=== PATIENT | male | born 1975 | race Caucasian/White ===

== ENCOUNTER 2018-03-21 09:34 | Observation (INO) ==
[2018-03-21] MEDS ORDERED: ONDANSETRON 4 MG/2 ML VIAL IV PRN (10:55)
[2018-03-21] MEDS ORDERED: DOCUSATE SODIUM 100 MG CAPSULE PO PRN (10:55)
[2018-03-21] MEDS ORDERED: ACETAMINOPHEN 325 MG TABLET PO PRN (10:55)
[2018-03-21] MEDS: FLECAINIDE 50 MG TABLET PO SCH ×2 (14:57→20:54)
[2018-03-21] MEDS: ENOXAPARIN 100 MG/ML SYRINGE SUBCUT SCH (14:57)
[2018-03-21] MEDS: NICOTINE 14 MG/24 HR PATCH TRANSDERM SCH (14:58)
[2018-03-21] MEDS ORDERED: ALUM/MAG/SIMETH/LIDO VISC 1:1 30 ML BOTTLE PO ONE (16:09)
[2018-03-21] MEDS: KETOROLAC 15 MG/1 ML VIAL IV SCH ×2 (16:18→22:38)
[2018-03-21 16:20] LABS: Basophils % 0.4 % (0.0-0.8); Eosinophils # 0.1 10*3/uL (0.0-0.87); Eosinophils % 0.8 % (0.00-10.9); Hemoglobin 12.7 GM/DL (14.0-18.0); Immature Granulocytes % 0.3 %; Immature Granulocytes Absolute 0.03 #; Lymphocytes # 2.6 10*3/uL (1.4-4.0); Lymphocytes % 25.4 % (21.2-54.2); Mean Corpuscular HGB Conc 31.8 GM/DL (32-36); Mean Corpuscular Hemoglobin 28 PG (27-34); Mean Corpuscular Volume 88.3 FL (87-102); Mean Platelet Volume 10.7 FL (9.6-12.0); Monocytes % 9.7 % (1.7-12.7); Neutrophils # 6.5 10*3/uL (1.4-7.4); Neutrophils % 63.4 % (38.7-73.9); Platelet Count 225 T/CUMM (130-400); Red Blood Count 4.53 MC/CUMM (3.8-5.5); Red Cell Distribution Width 16.7 % (9.3-17.3); White Blood Count 10.2 T/CUMM (4-12)
[2018-03-21 16:54] LABS: Bilirubin,Total 0.5 MG/DL (0.2-1.0); Calcium 7.6 MG/DL (8.5-10.1); Osmolality,Calculated 283.3 MOS/KG (273-304); Potassium 3.8 MMOL/L (3.5-5.1); Total Protein 6.1 G/DL (6.4-8.3)
[2018-03-21] MEDS: PANTOPRAZOLE 40 MG TABLET PO SCH (17:10)
[2018-03-21] MEDS: ASPIRIN CHEW 81 MG TABLET PO SCH (17:10)
[2018-03-22] MEDS: ENOXAPARIN 100 MG/ML SYRINGE SUBCUT SCH ×2 (02:59→15:40)
[2018-03-22] MEDS: KETOROLAC 15 MG/1 ML VIAL IV SCH ×4 (03:50→22:10)
[2018-03-22 04:15] LABS: Albumin 2.8 G/DL (3.4-5.0); Bilirubin,Total 0.4 MG/DL (0.2-1.0); Calcium 7.5 MG/DL (8.5-10.1); Osmolality,Calculated 279.5 MOS/KG (273-304); Potassium 3.8 MMOL/L (3.5-5.1)
[2018-03-22 04:16] LABS: Risk Ratio 4.62; VLDL CHOLESTEROL 21.8 MG/DL
[2018-03-22] MEDS ORDERED: ASPIRIN 325 MG TABLET PO ONE (06:40)
[2018-03-22] MEDS ORDERED: diphenhydrAMINE CAP 25 MG CAPSULE PO ONE (06:40)
[2018-03-22] MEDS ORDERED: POTASSIUM CHLORIDE RIDER 10 MEQ in PREMIX 1 EACH IV PRN (06:40)
[2018-03-22] MEDS ORDERED: DIAZEPAM 5 MG TABLET PO ONE (06:40)
[2018-03-22] MEDS ORDERED: MAGNESIUM SULF RIDER 2 GM in PREMIX 1 EACH IV PRN (06:40)
[2018-03-22] MEDS: FLECAINIDE 50 MG TABLET PO SCH ×2 (09:00→21:19)
[2018-03-22] MEDS: PANTOPRAZOLE 40 MG TABLET PO SCH (09:00)
[2018-03-22] MEDS: BUPRENORPHINE HCL PO SCH (09:02)
[2018-03-22] MEDS: NALOXONE HCL PO SCH (09:02)
[2018-03-22] MEDS: ASPIRIN CHEW 81 MG TABLET PO SCH (09:03)
[2018-03-22] MEDS: NICOTINE 14 MG/24 HR PATCH TRANSDERM SCH (09:03)
[2018-03-22] MEDS: Dextroamphetamine/Amphetamine [Adderall 30 Mg Tablet] PO SCH (09:03)
[2018-03-22 09:13] LABS: Apearance,Urine CLEAR (Clear); Bilirubin,Urine Negative (Negative); Blood, Urine Small mg/dL (Negative); Glucose,Urine (UA) Negative (Negative); Ketones,Urine Negative (Negative); Mucus,Urine Many /LPF (Occasional); Nitrite,Urine Negative (Negative); Protein,Urine Negative; RBC,Urine 5 /HPF (0-4); Urine Color Yellow (Yellow); WBC,Urine 1 /HPF (0-6)
[2018-03-22] MEDS: SODIUM CHLORIDE 0.9% 1,000 ML IV SCH ×2 (09:50→17:14)
[2018-03-22] MEDS ORDERED: VERAPAMIL 5 MG/2 ML VIAL ONE (13:12)
[2018-03-22] MEDS ORDERED: NITROGLYCERIN DRIP 50 MG/250 ML BOTTLE IV ONE (13:12)
[2018-03-22] MEDS ORDERED: fentaNYL 100 MCG/2 ML VIAL ONE (13:20)
[2018-03-22] MEDS ORDERED: MIDAZOLAM 2 MG/2 ML VIAL ONE (13:20)
[2018-03-22] MEDS ORDERED: ENOXAPARIN 60 MG/0.6 ML SYRINGE ONE (13:36)
[2018-03-22] MEDS: POLYETHYLENE GLYCOL POWDER 17 GM PACK PO SCH (18:08)
[2018-03-22] MEDS: APIXABAN 5 MG TABLET PO SCH (21:19)
[2018-03-23] MEDS: KETOROLAC 15 MG/1 ML VIAL IV SCH (04:22)
[2018-03-23 05:19] LABS: Basophils % 0.5 % (0.0-0.8); Eosinophils # 0.1 10*3/uL (0.0-0.87); Eosinophils % 2.2 % (0.00-10.9); Hematocrit 38.4 VOL% (42.0-52.0); Immature Granulocytes % 0.2 %; Immature Granulocytes Absolute 0.01 #; Lymphocytes # 2.1 10*3/uL (1.4-4.0); Lymphocytes % 35.3 % (21.2-54.2); Mean Corpuscular HGB Conc 31.3 GM/DL (32-36); Mean Corpuscular Hemoglobin 28 PG (27-34); Mean Corpuscular Volume 89.7 FL (87-102); Mean Platelet Volume 9.8 FL (9.6-12.0); Monocytes # 0.5 10*3/uL (0.11-0.8); Monocytes % 8.3 % (1.7-12.7); Neutrophils # 3.2 10*3/uL (1.4-7.4); Neutrophils % 53.5 % (38.7-73.9); Platelet Count 171 T/CUMM (130-400); Red Blood Count 4.28 MC/CUMM (3.8-5.5); Red Cell Distribution Width 16.5 % (9.3-17.3); White Blood Count 5.9 T/CUMM (4-12)
[2018-03-23 05:35] LABS: Calcium 7.8 MG/DL (8.5-10.1); Osmolality,Calculated 285.1 MOS/KG (273-304); Potassium 3.8 MMOL/L (3.5-5.1)
[2018-03-23 05:36] LABS: Potassium 3.9 MMOL/L (3.5-5.1)
[2018-03-23] MEDS: NICOTINE 14 MG/24 HR PATCH TRANSDERM SCH (09:40)
[2018-03-23] MEDS: APIXABAN 5 MG TABLET PO SCH (09:41)
[2018-03-23] MEDS: POLYETHYLENE GLYCOL POWDER 17 GM PACK PO SCH (09:41)
[2018-03-23] MEDS: PANTOPRAZOLE 40 MG TABLET PO SCH (09:41)
[2018-03-23] MEDS: ASPIRIN CHEW 81 MG TABLET PO SCH (09:41)
[2018-03-23] MEDS: FLECAINIDE 50 MG TABLET PO SCH (09:41)
[2018-03-23] MEDS: BUPRENORPHINE HCL PO SCH (09:41)
[2018-03-23] MEDS: NALOXONE HCL PO SCH (09:41)
[2018-03-23] MEDS: Dextroamphetamine/Amphetamine [Adderall 30 Mg Tablet] PO SCH (09:42)
[2018-03-23 11:30] VITALS: BP 125/66
== END 2018-03-23 11:50 | disposition home or self-care (01) ==
LOC: N.TELES → SUATTDRO 10:24
PROVIDERS: ADMIT Internal Medicine; ATTEND Internal Medicine
PROC: CLCCHCL (ICD-10-PCS; 2018-03-22 13:45)

== ENCOUNTER 2019-01-28 01:20 | Inpatient (IN) ==
[2019-01-28] MEDS ORDERED: FUROSEMIDE 40 MG/4 ML VIAL IV STA (01:42)
[2019-01-28] MEDS ORDERED: METOPROLOL TARTRATE 5 MG/5 ML VIAL IV STA ×2 (01:44→04:32)
[2019-01-28 01:59] LABS: Basophils % 0.3 % (0.0-0.8); Hematocrit 47.6 VOL% (42.0-52.0); Hemoglobin 14.7 GM/DL (14.0-18.0); Immature Granulocytes % 0.4 %; Immature Granulocytes Absolute 0.06 #; Lymphocytes % 13.1 % (21.2-54.2); Mean Corpuscular HGB Conc 30.9 GM/DL (32-36); Mean Corpuscular Volume 89.1 FL (87-102); Mean Platelet Volume 9.3 FL (9.6-12.0); Monocytes % 7.5 % (1.7-12.7); Neutrophils % 78.7 % (38.7-73.9); Platelet Count 307 T/CUMM (130-400); Red Blood Count 5.34 MC/CUMM (3.8-5.5); Red Cell Distribution Width 14.7 % (9.3-17.3); White Blood Count 14.9 T/CUMM (4-12)
[2019-01-28 02:10] LABS: Allen Test Positive
[2019-01-28 02:12] LABS: ABG Base Excess -0.6 MMOL/L (-2.5-2.5); ABG HCO3 23.6 MMOL/L (20-26); ABG Oxygen Saturation 85.5 % (95-100); ABG PH 7.452 (7.35-7.45)
[2019-01-28 02:19] LABS: INR 1.1; PT Patient Result 11.4 SECS (9.6-12.2)
[2019-01-28 02:24] LABS: Albumin 3.5 G/DL (3.4-5.0); Bilirubin,Total 0.5 MG/DL (0.2-1.0); Calcium 9.3 MG/DL (8.5-10.1); Osmolality,Calculated 281.7 MOS/KG (273-304); Total Protein 7.2 G/DL (6.4-8.3)
[2019-01-28] MEDS ORDERED: LEVALBUTEROL 0.63 MG/3 ML NEB RESP TX ONE (02:52)
[2019-01-28] MEDS ORDERED: AMIODARONE INJ 150 MG in DEXTROSE 5% 100 ML IV ONE (03:01)
[2019-01-28] MEDS ORDERED: ENOXAPARIN 30 MG/0.3 ML SYRINGE SUBCUT STA (03:01)
[2019-01-28] MEDS ORDERED: AMIODARONE 450 MG/9 ML VIAL IV ONE (03:16)
[2019-01-28] MEDS ORDERED: DILTIAZEM 25 MG/5 ML VIAL IV ONE (03:31)
[2019-01-28] MEDS ORDERED: DILTIAZEM 100 MG VIAL.ADD IV STA (03:32)
[2019-01-28] MEDS ORDERED: SODIUM CHLORIDE 0.9% 1,000 ML IV STA (03:33)
[2019-01-28] MEDS ORDERED: DILTIAZEM 25 MG/5 ML VIAL IV STA (03:34)
[2019-01-28] MEDS: AMIODARONE INJ 450 MG in DEXTROSE 5% 241 ML IV SCH ×2 (03:50→08:04)
[2019-01-28] MEDS ORDERED: ONDANSETRON ODT 4 MG TABLET PO ONE (04:08)
[2019-01-28 04:18] LABS: Allen Test Positive; Pt O2 Delivery Device Other
[2019-01-28 04:19] LABS: ABG Base Excess -6.8 MMOL/L (-2.5-2.5); ABG PCO2 34.9 MM HG (35-48); ABG PO2 95.1 MM HG (80-95); ABG TCO2 15.7 MMOL/L (23-27)
[2019-01-28] MEDS ORDERED: NICOTINE 21 MG/24 HR PATCH TRANSDERM PRN (04:49)
[2019-01-28] MEDS ORDERED: ALBUTEROL/IPRATROPIUM 3 ML NEB RESP TX PRN (04:49)
[2019-01-28] MEDS ORDERED: FUROSEMIDE 20 MG/2 ML VIAL IV STA (05:03)
[2019-01-28] MEDS ORDERED: methylPREDNISolone SOD SUC 40 MG/1 ML VIAL IV SCH (06:00)
[2019-01-28 06:52] LABS: Apearance,Urine Clear (Clear); Bilirubin,Urine Negative (Negative); Blood, Urine Negative (Negative); Glucose,Urine (UA) Negative (Negative); Ketones,Urine Negative (Negative); Nitrite,Urine Negative (Negative); Protein,Urine >=500 MG/DL; Urine Specific Gravity 1.025 (1.001-1.035)
[2019-01-28 06:53] LABS: Urine Color Yellow (Yellow)
[2019-01-28] MEDS ORDERED: FUROSEMIDE 40 MG/4 ML VIAL IV ONE (07:27)
[2019-01-28] MEDS ORDERED: FUROSEMIDE 100 MG/10 ML VIAL ONE (07:31)
[2019-01-28] MEDS ORDERED: cefTRIAXone 2,000 MG in SYRINGE 1 EACH IV SCH (08:00)
[2019-01-28] MEDS ORDERED: FUROSEMIDE 40 MG/4 ML VIAL IV SCH (08:00)
[2019-01-28] MEDS ORDERED: ETOMIDATE 20 MG/10 ML VIAL IV ONE ×2 (08:20→08:38)
[2019-01-28 08:22] LABS: ABG Base Excess -11.8 MMOL/L (-2.5-2.5); ABG HCO3 15.5 MMOL/L (20-26); ABG Oxygen Saturation 96.2 % (95-100); ABG PH 7.308 (7.35-7.45); ABG PO2 98.5 MM HG (80-95); Pt O2 Delivery Device Other
[2019-01-28] MEDS ORDERED: ROCURONIUM 100 MG/10 ML VIAL IV ONE ×2 (08:26→08:41)
[2019-01-28] MEDS ORDERED: AMIODARONE INJ 450 MG in DEXTROSE 5% 241 ML IV SCH (08:30)
[2019-01-28] MEDS ORDERED: MORPHINE 4 MG/1 ML VIAL IV ONE (08:37)
[2019-01-28] MEDS ORDERED: SODIUM CHLORIDE 0.9% 500 ML IV ONE (08:47)
[2019-01-28] MEDS ORDERED: buPROPion XL 150 MG TABLET PO SCH (09:00)
[2019-01-28] MEDS ORDERED: LEVOFLOXACIN 500 MG TABLET PO SCH (09:00)
[2019-01-28] MEDS ORDERED: ASPIRIN CHEW 81 MG TABLET PO SCH (09:00)
[2019-01-28] MEDS ORDERED: EPINEPHrine 1 MG/10 ML SYRINGE ONE (09:06)
[2019-01-28] MEDS ORDERED: SODIUM BICARBONATE 50 MEQ/50 ML VIAL IV ONE (09:06)
[2019-01-28] MEDS ORDERED: HEPARIN/NACL 0.9% 2 UNITS/ML 500 ML IV ONE (09:19)
[2019-01-28 09:25] LABS: ABG Base Excess -15.3 MMOL/L (-2.5-2.5); ABG Oxygen Saturation 99.8 % (95-100); ABG PO2 431.7 MM HG (80-95)
[2019-01-28 09:26] LABS: ABG PH 7.177 (7.35-7.45)
[2019-01-28] MEDS ORDERED: DOBUTamine 500 MG/250 ML PREMIX IV ONE (09:28)
[2019-01-28] MEDS: DOBUTamine 500 MG/250 ML PREMIX IV PRN ×2 (09:30→19:55)
[2019-01-28] MEDS ORDERED: LACTATED RINGERS 500 ML IV ONE (10:07)
[2019-01-28] MEDS ORDERED: NOREPINEPHRINE 8 MG in SODIUM CHLORIDE 0.9% 242 ML IV PRN (10:09)
[2019-01-28] MEDS: PHENYLEPHRINE DRIP 40 MG/250 ML PREMIX IV PRN ×2 (11:38→11:39)
[2019-01-28] MEDS ORDERED: ENOXAPARIN 100 MG/ML SYRINGE SUBCUT SCH (12:00)
[2019-01-28] MEDS ORDERED: LEVOFLOXACIN INJ 750 MG in PREMIX 1 EACH IV ONE (13:00)
[2019-01-28] MEDS ORDERED: MEROPENEM 500 MG in SODIUM CHLORIDE 0.9% 100 ML IV SCH (13:00)
[2019-01-28 13:35] LABS: ABG HCO3 12.2 MMOL/L (20-26); ABG Oxygen Saturation 98.6 % (95-100); ABG PCO2 48.4 MM HG (35-48); ABG TCO2 12.9 MMOL/L (23-27)
[2019-01-28 13:37] LABS: ABG PH 7.072 (7.35-7.45)
[2019-01-28] MEDS: NOREPINEPHRINE 16 MG in SODIUM CHLORIDE 0.9% 234 ML IV PRN ×2 (14:07→19:53)
[2019-01-28] MEDS: PHENYLEPHRINE INJ 160 MG in SODIUM CHLORIDE 0.9% 234 ML IV PRN ×2 (14:09→19:53)
[2019-01-28 14:17] LABS: PT Patient Result 21.5 SECS (9.6-12.2)
[2019-01-28] MEDS: methylPREDNISolone SOD SUC 40 MG/1 ML VIAL IV SCH ×2 (14:20→23:22)
[2019-01-28 14:27] LABS: Basophils % 0.2 % (0.0-0.8); Immature Granulocytes % 1.5 %; Lymphocytes # 0.9 10*3/uL (1.4-4.0); Lymphocytes % 4.5 % (21.2-54.2); Mean Corpuscular HGB Conc 29.2 GM/DL (32-36); Mean Platelet Volume 10.1 FL (9.6-12.0); Monocytes % 4.7 % (1.7-12.7); NRBC # 0.02 10*3/uL; Neutrophils % 89.1 % (38.7-73.9); Platelet Count 247 T/CUMM (130-400); Red Blood Count 4.99 MC/CUMM (3.8-5.5); Red Cell Distribution Width 14.7 % (9.3-17.3); White Blood Count 20.1 T/CUMM (4-12)
[2019-01-28 14:29] LABS: Hematocrit 47.9 VOL% (42.0-52.0)
[2019-01-28] MEDS ORDERED: EPINEPHrine 1 MG/ML VIAL ONE (14:35)
[2019-01-28 14:53] LABS: Lymphocytes 6 % (20-55); Segmented Neutrophils 89 % (50-85); Total Cells Counted 100
[2019-01-28 14:54] LABS: Microcytosis Slight; Platelet Estimate Normal
[2019-01-28 15:01] LABS: Alanine Aminotransferase 8129 U/L (16-61); Albumin 2.5 G/DL (3.4-5.0); Alkaline Phosphatase 59 U/L (45-117); Aspartate Amino Transferase 7274 U/L (0-37); Blood Urea Nitrogen 40 MG/DL (7-18); Calcium 6.9 MG/DL (8.5-10.1); Estimated Glom Filtration Rate 23 ML/MIN; Glucose 86 MG/DL (74-106); Osmolality,Calculated 287.4 MOS/KG (273-304); Total Protein 5.5 G/DL (6.4-8.3)
[2019-01-28] MEDS: SODIUM BICARB INJ 100 MEQ in SODIUM CHLORIDE 0.45% 1,000 ML IV SCH (15:14)
[2019-01-28 15:24] LABS: ABG Base Excess -16.8 MMOL/L (-2.5-2.5); ABG HCO3 12.3 MMOL/L (20-26); ABG PCO2 43.3 MM HG (35-48); ABG TCO2 12.2 MMOL/L (23-27)
[2019-01-28 15:29] LABS: ABG PH 7.098 (7.35-7.45)
[2019-01-28] MEDS: fentaNYL INJ 1,250 MCG in SODIUM CHLORIDE 0.9% 225 ML IV PRN ×3 (15:36→22:30)
[2019-01-28] MEDS: FUROSEMIDE 40 MG/4 ML VIAL IV SCH (15:42)
[2019-01-28 18:43] LABS: Barbiturates Screen,Urine Negative (Negative); Benzodiazepines Screen,Urine Negative (Negative); Cannabinoid Screen,Urine Negative (Negative); Opiate Screen,Urine Positive (Negative); Phencyclidine Screen,Urine Negative (Negative)
[2019-01-28] MEDS ORDERED: LORazepam 2 MG/1 ML VIAL IV PRN (18:50)
[2019-01-28] MEDS ORDERED: LORazepam 2 MG/1 ML VIAL ONE ×2 (18:53→20:25)
[2019-01-28 19:25] LABS: ABG Base Excess -14.5 MMOL/L (-2.5-2.5); ABG HCO3 13.6 MMOL/L (20-26); ABG Oxygen Saturation 99.2 % (95-100); ABG TCO2 13.8 MMOL/L (23-27)
[2019-01-28 19:28] LABS: ABG PH 7.126 (7.35-7.45)
[2019-01-28] MEDS ORDERED: ZIPRASIDONE 20 MG/1 ML VIAL IM ONE (20:18)
[2019-01-28] MEDS: LORazepam 2 MG/1 ML VIAL IV PRN (20:30)
[2019-01-29] MEDS: LORazepam 2 MG/1 ML VIAL IV PRN ×2 (00:33→09:02)
[2019-01-29] MEDS: fentaNYL INJ 2,500 MCG in SODIUM CHLORIDE 0.9% 450 ML IV PRN ×2 (01:37→08:27)
[2019-01-29] MEDS: SODIUM BICARB INJ 100 MEQ in SODIUM CHLORIDE 0.45% 1,000 ML IV SCH ×2 (01:38→12:45)
[2019-01-29 04:34] LABS: Basophils % 0.1 % (0.0-0.8); Hematocrit 38.6 VOL% (42.0-52.0); Hemoglobin 11.8 GM/DL (14.0-18.0); Immature Granulocytes % 0.7 %; Lymphocytes # 0.6 10*3/uL (1.4-4.0); Lymphocytes % 4.3 % (21.2-54.2); Mean Corpuscular HGB Conc 30.6 GM/DL (32-36); Mean Corpuscular Volume 90.4 FL (87-102); Mean Platelet Volume 10.6 FL (9.6-12.0); Monocytes % 3.2 % (1.7-12.7); Neutrophils % 91.7 % (38.7-73.9); Platelet Count 112 T/CUMM (130-400); Red Blood Count 4.27 MC/CUMM (3.8-5.5); Red Cell Distribution Width 14.3 % (9.3-17.3); White Blood Count 13.7 T/CUMM (4-12)
[2019-01-29 04:37] LABS: ABG HCO3 19.4 MMOL/L (20-26); ABG Oxygen Saturation 97.3 % (95-100); ABG PCO2 38.2 MM HG (35-48); ABG PH 7.324 (7.35-7.45); ABG PO2 108.5 MM HG (80-95); ABG TCO2 20.6 MMOL/L (23-27)
[2019-01-29] MEDS: PHENYLEPHRINE INJ 160 MG in SODIUM CHLORIDE 0.9% 234 ML IV PRN (04:45)
[2019-01-29 04:54] LABS: Calcium 6.2 MG/DL (8.5-10.1); Osmolality,Calculated 296.4 MOS/KG (273-304)
[2019-01-29] MEDS ORDERED: MAGNESIUM SULF RIDER 4 GM in PREMIX 1 EACH IV PRN (05:12)
[2019-01-29] MEDS ORDERED: MAGNESIUM SULF RIDER 2 GM in PREMIX 1 EACH IV PRN (05:12)
[2019-01-29 05:25] LABS: Band Neutrophils 4 % (0-10); Lymphocytes 2 % (20-55); Segmented Neutrophils 91 % (50-85); Total Cells Counted 100
[2019-01-29 05:26] LABS: Hypochromasia Slight; Platelet Estimate Decreased
[2019-01-29] MEDS: methylPREDNISolone SOD SUC 40 MG/1 ML VIAL IV SCH ×3 (05:47→16:23)
[2019-01-29] MEDS: ONDANSETRON 4 MG/2 ML VIAL IV PRN (06:43)
[2019-01-29 07:19] LABS: Albumin 2.4 G/DL (3.4-5.0); Bilirubin,Total 1.4 MG/DL (0.2-1.0); Osmolality,Calculated 298.3 MOS/KG (273-304); Total Protein 4.9 G/DL (6.4-8.3)
[2019-01-29] MEDS ORDERED: GLUCAGON 1 MG VIAL IM PRN (08:05)
[2019-01-29] MEDS ORDERED: DEXTROSE 50% 25 GM/50 ML VIAL IV PRN (08:05)
[2019-01-29] MEDS: FUROSEMIDE 40 MG/4 ML VIAL IV SCH ×2 (08:14→16:18)
[2019-01-29] MEDS ORDERED: DEXTROSE 10% 250 ML IV PRN (08:42)
[2019-01-29] MEDS ORDERED: LORazepam 2 MG/1 ML VIAL ONE (08:55)
[2019-01-29 09:17] LABS: Hepatitis B Core IgM Quant 0.19 Index; Hepatitis B Surface Ag Quant < 0.10 Index; Hepatitis B Surface Ag Result Negative (Negative); Hepatitis C Virus Ab Quant < 0.02 Index; Hepatitis C Virus Ab Result Negative (Negative)
[2019-01-29] MEDS: DEXMEDETOMIDINE 200 MCG in SODIUM CHLORIDE 0.9% 48 ML IV PRN (09:20)
[2019-01-29] MEDS: DIAZEPAM 5 MG TABLET PER TUBE SCH ×3 (10:07→20:01)
[2019-01-29] MEDS ORDERED: ENOXAPARIN 100 MG/ML SYRINGE SUBCUT SCH (13:00)
[2019-01-29] MEDS: ENOXAPARIN 30 MG/0.3 ML SYRINGE SUBCUT SCH (14:06)
[2019-01-29] MEDS: MEROPENEM 500 MG in SODIUM CHLORIDE 0.9% 100 ML IV SCH (14:07)
[2019-01-30] MEDS: methylPREDNISolone SOD SUC 40 MG/1 ML VIAL IV SCH ×3 (01:15→15:50)
[2019-01-30] MEDS: MORPHINE 4 MG/1 ML VIAL IV PRN (01:15)
[2019-01-30 03:51] LABS: ABG Oxygen Saturation 92.6 % (95-100); ABG PCO2 29.9 MM HG (35-48); ABG PH 7.372 (7.35-7.45); ABG PO2 75.2 MM HG (80-95); ABG TCO2 17.9 MMOL/L (23-27)
[2019-01-30 03:56] LABS: Basophils % 0.2 % (0.0-0.8); Hemoglobin 12.1 GM/DL (14.0-18.0); Immature Granulocytes % 0.8 %; Lymphocytes # 0.6 10*3/uL (1.4-4.0); Lymphocytes % 4.8 % (21.2-54.2); Mean Platelet Volume 12.2 FL (9.6-12.0); Monocytes % 4.2 % (1.7-12.7); NRBC # 0.06 10*3/uL; Red Blood Count 4.43 MC/CUMM (3.8-5.5); Red Cell Distribution Width 14.2 % (9.3-17.3); White Blood Count 12.8 T/CUMM (4-12)
[2019-01-30 04:01] LABS: Platelet Count 80 T/CUMM (130-400)
[2019-01-30 05:17] LABS: Bilirubin,Total 1.3 MG/DL (0.2-1.0); Calcium 6.2 MG/DL (8.5-10.1); Total Protein 5.6 G/DL (6.4-8.3)
[2019-01-30 05:18] LABS: Albumin 2.8 G/DL (3.4-5.0); Osmolality,Calculated 292.4 MOS/KG (273-304)
[2019-01-30 05:41] LABS: Band Neutrophils 1 % (0-10); Lymphocytes 7 % (20-55); Segmented Neutrophils 89 % (50-85)
[2019-01-30 05:42] LABS: Platelet Estimate Decreased
[2019-01-30 05:43] LABS: Hypochromasia Slight; Ovalocytes 2+; Total Cells Counted 100
[2019-01-30] MEDS ORDERED: SODIUM BICARBONATE 50 MEQ/50 ML VIAL IV ONE ×3 (08:23→18:00)
[2019-01-30] MEDS ORDERED: hydrALAZINE 20 MG/1 ML VIAL IV PRN (08:28)
[2019-01-30] MEDS: FUROSEMIDE 40 MG/4 ML VIAL IV SCH (08:37)
[2019-01-30] MEDS: SODIUM BICARB INJ 100 MEQ in SODIUM CHLORIDE 0.45% 1,000 ML IV SCH (08:44)
[2019-01-30] MEDS ORDERED: ZUBSOLV PO SCH (09:00)
[2019-01-30] MEDS: ISOSORBIDE MONONITRATE 30 MG TABLET PO SCH (09:12)
[2019-01-30] MEDS: carvediloL 3.125 MG TABLET PO SCH ×2 (09:12→20:49)
[2019-01-30] MEDS: DIAZEPAM 5 MG TABLET PER TUBE SCH ×3 (09:12→20:49)
[2019-01-30] MEDS: hydrALAZINE 25 MG TABLET PO SCH ×2 (09:12→20:49)
[2019-01-30] MEDS: ALBUTEROL/IPRATROPIUM 3 ML NEB RESP TX SCH ×3 (09:20→19:24)
[2019-01-30] MEDS: ZUBSOLV SL SCH (09:34)
[2019-01-30] MEDS: DEXMEDETOMIDINE 200 MCG in SODIUM CHLORIDE 0.9% 48 ML IV PRN ×2 (10:55→23:28)
[2019-01-30] MEDS ORDERED: LEVOFLOXACIN INJ 500 MG in PREMIX 1 EACH IV SCH (13:30)
[2019-01-30] MEDS: ENOXAPARIN 30 MG/0.3 ML SYRINGE SUBCUT SCH (13:56)
[2019-01-30] MEDS: MEROPENEM 500 MG in SODIUM CHLORIDE 0.9% 100 ML IV SCH (13:57)
[2019-01-30] MEDS: ONDANSETRON 4 MG/2 ML VIAL IV PRN (14:20)
[2019-01-31] MEDS: ALBUTEROL/IPRATROPIUM 3 ML NEB RESP TX SCH ×4 (01:45→19:10)
[2019-01-31] MEDS: methylPREDNISolone SOD SUC 40 MG/1 ML VIAL IV SCH ×4 (01:46→23:55)
[2019-01-31 04:08] LABS: ABG Base Excess -5.2 MMOL/L (-2.5-2.5); ABG HCO3 20.1 MMOL/L (20-26); ABG Oxygen Saturation 96.7 % (95-100); ABG PCO2 31.2 MM HG (35-48); ABG PH 7.386 (7.35-7.45); ABG PO2 96.4 MM HG (80-95); ABG TCO2 16.4 MMOL/L (23-27); Allen Test Positive; Pt O2 Delivery Device Simple Mask
[2019-01-31 04:34] LABS: Basophils % 0.1 % (0.0-0.8); Hematocrit 39.1 VOL% (42.0-52.0); Hemoglobin 12.6 GM/DL (14.0-18.0); Immature Granulocytes Absolute 0.13 #; Lymphocytes # 0.8 10*3/uL (1.4-4.0); Lymphocytes % 6.3 % (21.2-54.2); Mean Corpuscular HGB Conc 32.2 GM/DL (32-36); Mean Corpuscular Volume 84.3 FL (87-102); Mean Platelet Volume 10.6 FL (9.6-12.0); Monocytes % 5.5 % (1.7-12.7); NRBC # 0.06 10*3/uL; Neutrophils % 87.1 % (38.7-73.9); Platelet Count 81 T/CUMM (130-400); Red Blood Count 4.64 MC/CUMM (3.8-5.5); Red Cell Distribution Width 13.9 % (9.3-17.3); White Blood Count 12.5 T/CUMM (4-12)
[2019-01-31 04:59] LABS: Hypochromasia Slight; Platelet Estimate Decreased; Polychromasia Few; Smudge Cells Few
[2019-01-31 05:43] LABS: Albumin 2.5 G/DL (3.4-5.0); Bilirubin,Total 1.6 MG/DL (0.2-1.0); Osmolality,Calculated 293.1 MOS/KG (273-304); Total Protein 5.2 G/DL (6.4-8.3)
[2019-01-31 06:00] LABS: Calcium 5.8 MG/DL (8.5-10.1)
[2019-01-31] MEDS ORDERED: SODIUM BICARBONATE 50 MEQ/50 ML VIAL IV ONE (08:08)
[2019-01-31] MEDS: ISOSORBIDE MONONITRATE 30 MG TABLET PO SCH (09:40)
[2019-01-31] MEDS: carvediloL 3.125 MG TABLET PO SCH ×2 (09:41→20:25)
[2019-01-31] MEDS: hydrALAZINE 25 MG TABLET PO SCH ×2 (09:41→20:24)
[2019-01-31] MEDS: DIAZEPAM 5 MG TABLET PER TUBE SCH ×3 (09:41→20:24)
[2019-01-31] MEDS: ZUBSOLV SL SCH (09:50)
[2019-01-31] MEDS: SODIUM BICARB INJ 100 MEQ in SODIUM CHLORIDE 0.45% 1,000 ML IV SCH ×2 (09:52→13:13)
[2019-01-31] MEDS ORDERED: BUPIVACAINE 0.25% /EPI 10 ML VIAL ONE (10:32)
[2019-01-31] MEDS ORDERED: HEPARIN 5,000 UNIT/1 ML VIAL ONE (10:32)
[2019-01-31] MEDS ORDERED: LIDOCAINE 1% 20 ML VIAL ONE (10:32)
[2019-01-31] MEDS ORDERED: TISSUE ADHESIVE 1 EACH APPLICATOR TOP ONE (12:00)
[2019-01-31] MEDS ORDERED: ETOMIDATE 40 MG/20 ML VIAL IV ONE (12:43)
[2019-01-31] MEDS ORDERED: MIDAZOLAM 2 MG/2 ML VIAL ONE (12:43)
[2019-01-31] MEDS: ENOXAPARIN 30 MG/0.3 ML SYRINGE SUBCUT SCH (13:25)
[2019-01-31] MEDS: MEROPENEM 500 MG in SODIUM CHLORIDE 0.9% 100 ML IV SCH (13:29)
[2019-01-31] MEDS: DEXMEDETOMIDINE 200 MCG in SODIUM CHLORIDE 0.9% 48 ML IV PRN (14:04)
[2019-01-31] MEDS ORDERED: HEPARIN 10,000 UNIT/10 ML VIAL IV PRN (16:40)
[2019-02-01] MEDS: ALBUTEROL/IPRATROPIUM 3 ML NEB RESP TX SCH ×4 (00:28→20:09)
[2019-02-01] MEDS: MORPHINE 4 MG/1 ML VIAL IV PRN (01:34)
[2019-02-01 03:40] LABS: Basophils % 0.2 % (0.0-0.8); Immature Granulocytes Absolute 0.16 #; Lymphocytes # 0.5 10*3/uL (1.4-4.0); Mean Corpuscular HGB Conc 32.5 GM/DL (32-36); Mean Platelet Volume 11.2 FL (9.6-12.0); Monocytes % 5.4 % (1.7-12.7); NRBC # 0.07 10*3/uL; Neutrophils % 90.4 % (38.7-73.9); Red Blood Count 4.76 MC/CUMM (3.8-5.5); Red Cell Distribution Width 13.9 % (9.3-17.3); White Blood Count 15.5 T/CUMM (4-12)
[2019-02-01 04:21] LABS: ABG Oxygen Saturation 92.6 % (95-100); ABG PO2 70.8 MM HG (80-95); ABG TCO2 17.1 MMOL/L (23-27); Allen Test Positive
[2019-02-01 04:39] LABS: Platelet Count 121 T/CUMM (130-400)
[2019-02-01 05:04] LABS: Albumin 2.5 G/DL (3.4-5.0); Bilirubin,Total 1.5 MG/DL (0.2-1.0); Calcium 6.2 MG/DL (8.5-10.1); Osmolality,Calculated 296.7 MOS/KG (273-304); Total Protein 5.1 G/DL (6.4-8.3)
[2019-02-01 05:26] LABS: Lymphocytes 1 % (20-55); Platelet Estimate Decreased; Polychromasia Few; Segmented Neutrophils 94 % (50-85); Total Cells Counted 100
[2019-02-01] MEDS ORDERED: chlorproMAZINE 25 MG TABLET PO ONE (06:45)
[2019-02-01] MEDS: methylPREDNISolone SOD SUC 40 MG/1 ML VIAL IV SCH ×2 (07:28→16:09)
[2019-02-01] MEDS: DEXMEDETOMIDINE 200 MCG in SODIUM CHLORIDE 0.9% 48 ML IV PRN (07:32)
[2019-02-01] MEDS: hydrALAZINE 25 MG TABLET PO SCH ×2 (09:00→21:26)
[2019-02-01] MEDS: carvediloL 6.25 MG TABLET PO SCH ×2 (09:00→21:26)
[2019-02-01] MEDS: ZUBSOLV SL SCH (09:42)
[2019-02-01] MEDS: DIAZEPAM 5 MG TABLET PER TUBE SCH (09:42)
[2019-02-01] MEDS: ENOXAPARIN 30 MG/0.3 ML SYRINGE SUBCUT SCH (13:59)
[2019-02-01] MEDS: ISOSORBIDE MONONITRATE 30 MG TABLET PO SCH (14:00)
[2019-02-01] MEDS: MEROPENEM 500 MG in SODIUM CHLORIDE 0.9% 100 ML IV SCH (14:41)
[2019-02-01] MEDS: CLORAZEPATE 7.5 MG TABLET PO SCH ×2 (15:50→21:25)
[2019-02-01] MEDS: PHENOL 1.4% THROAT SPRAY 177 ML BOTTLE PO PRN (21:28)
[2019-02-02] MEDS: methylPREDNISolone SOD SUC 40 MG/1 ML VIAL IV SCH ×4 (00:33→23:41)
[2019-02-02] MEDS: ALBUTEROL/IPRATROPIUM 3 ML NEB RESP TX SCH ×4 (01:09→18:55)
[2019-02-02 04:27] LABS: ABG Base Excess -2.8 MMOL/L (-2.5-2.5); ABG HCO3 21.9 MMOL/L (20-26); ABG Oxygen Saturation 87.4 % (95-100); ABG PCO2 34.6 MM HG (35-48); ABG PH 7.398 (7.35-7.45); ABG PO2 59.4 MM HG (80-95); ABG TCO2 18.6 MMOL/L (23-27); Allen Test Positive
[2019-02-02 04:41] LABS: Albumin 2.5 G/DL (3.4-5.0); Bilirubin,Total 1.7 MG/DL (0.2-1.0); Calcium 6.9 MG/DL (8.5-10.1); Osmolality,Calculated 299.4 MOS/KG (273-304); Total Protein 5.2 G/DL (6.4-8.3)
[2019-02-02] MEDS: hydrALAZINE 25 MG TABLET PO SCH ×2 (09:53→20:24)
[2019-02-02] MEDS: ISOSORBIDE MONONITRATE 30 MG TABLET PO SCH (09:53)
[2019-02-02] MEDS: carvediloL 12.5 MG TABLET PO SCH ×2 (09:54→20:24)
[2019-02-02] MEDS: CLORAZEPATE 7.5 MG TABLET PO SCH ×3 (10:01→20:24)
[2019-02-02] MEDS: ZUBSOLV SL SCH (10:01)
[2019-02-02] MEDS: ENOXAPARIN 30 MG/0.3 ML SYRINGE SUBCUT SCH (13:00)
[2019-02-02] MEDS: MEROPENEM 500 MG in SODIUM CHLORIDE 0.9% 100 ML IV SCH (13:30)
[2019-02-02] MEDS: MYLANTA/LIDO VISC/DIPH 300 ML BOTTLE SWISH/SWAL SCH ×3 (14:04→20:25)
[2019-02-02] MEDS: PHENOL 1.4% THROAT SPRAY 177 ML BOTTLE PO PRN (22:22)
[2019-02-02] MEDS: chlorproMAZINE 25 MG TABLET PO PRN (22:26)
[2019-02-02] MEDS: MORPHINE 4 MG/1 ML VIAL IV PRN (22:26)
[2019-02-03] MEDS: ALBUTEROL/IPRATROPIUM 3 ML NEB RESP TX SCH ×4 (01:42→19:39)
[2019-02-03] MEDS: MORPHINE 4 MG/1 ML VIAL IV PRN ×2 (02:55→22:48)
[2019-02-03 03:23] LABS: ABG Base Excess -1.6 MMOL/L (-2.5-2.5); ABG Oxygen Saturation 92.3 % (95-100); ABG PCO2 40.3 MM HG (35-48); ABG PH 7.374 (7.35-7.45); ABG PO2 73.1 MM HG (80-95); ABG TCO2 20.2 MMOL/L (23-27); Allen Test Positive
[2019-02-03 03:44] LABS: Basophils # 0.1 10*3/uL (0.0-0.2); Basophils % 0.3 % (0.0-0.8); Hematocrit 44.2 VOL% (42.0-52.0); Hemoglobin 14.6 GM/DL (14.0-18.0); Immature Granulocytes % 1.4 %; Immature Granulocytes Absolute 0.33 #; Lymphocytes # 0.5 10*3/uL (1.4-4.0); Mean Corpuscular Volume 83.9 FL (87-102); Mean Platelet Volume 11.1 FL (9.6-12.0); Monocytes % 10.3 % (1.7-12.7); NRBC # 0.29 10*3/uL; Platelet Count 113 T/CUMM (130-400); Red Blood Count 5.27 MC/CUMM (3.8-5.5); Red Cell Distribution Width 14.3 % (9.3-17.3); White Blood Count 23.9 T/CUMM (4-12)
[2019-02-03] MEDS ORDERED: VECURONIUM 10 MG VIAL IV ONE (03:47)
[2019-02-03] MEDS ORDERED: ETOMIDATE 20 MG/10 ML VIAL IV ONE ×2 (03:47→03:50)
[2019-02-03 04:04] LABS: Calcium 7.2 MG/DL (8.5-10.1); Osmolality,Calculated 300.2 MOS/KG (273-304)
[2019-02-03 04:31] LABS: Lymphocytes 3 % (20-55); Nucleated Red Blood Cells 2 (0-5); Platelet Estimate Decreased; Polychromasia Few; Segmented Neutrophils 90 % (50-85); Total Cells Counted 100
[2019-02-03 05:11] LABS: ABG Base Excess -1.6 MMOL/L (-2.5-2.5); ABG HCO3 23.1 MMOL/L (20-26); ABG Oxygen Saturation 99.7 % (95-100); ABG PCO2 39.9 MM HG (35-48); ABG PH 7.377 (7.35-7.45); ABG TCO2 20.3 MMOL/L (23-27); Allen Test Positive; Pt O2 Delivery Device Ventilator
[2019-02-03] MEDS: methylPREDNISolone SOD SUC 40 MG/1 ML VIAL IV SCH ×3 (10:27→22:44)
[2019-02-03] MEDS: carvediloL 12.5 MG TABLET PO SCH ×2 (11:19→20:44)
[2019-02-03] MEDS: CLORAZEPATE 7.5 MG TABLET PO SCH (11:19)
[2019-02-03] MEDS: ISOSORBIDE MONONITRATE 30 MG TABLET PO SCH (11:20)
[2019-02-03] MEDS: hydrALAZINE 25 MG TABLET PO SCH ×2 (11:20→20:44)
[2019-02-03] MEDS: MYLANTA/LIDO VISC/DIPH 300 ML BOTTLE SWISH/SWAL SCH (11:20)
[2019-02-03] MEDS: HEPARIN 5,000 UNIT/1 ML VIAL SUBCUT SCH ×2 (11:28→22:44)
[2019-02-03] MEDS: ZUBSOLV SL SCH (11:36)
[2019-02-03] MEDS ORDERED: DEXTROSE 50% 25 GM/50 ML VIAL IV PRN (12:26)
[2019-02-03] MEDS: MEROPENEM 500 MG in SODIUM CHLORIDE 0.9% 100 ML IV SCH (13:11)
[2019-02-03] MEDS: buPROPion 100 MG TABLET PER TUBE SCH ×2 (16:08→20:44)
[2019-02-03] MEDS: ISOSORBIDE DINITRATE 10 MG TABLET PO SCH ×2 (16:23→20:43)
[2019-02-03] MEDS: INSULIN REGULAR 100 UNIT/ML SUBCUT SCH ×2 (18:08→23:41)
[2019-02-04] MEDS: ALBUTEROL/IPRATROPIUM 3 ML NEB RESP TX SCH ×4 (00:52→20:26)
[2019-02-04] MEDS: MORPHINE 4 MG/1 ML VIAL IV PRN (02:54)
[2019-02-04 03:19] LABS: ABG Base Excess -1.3 MMOL/L (-2.5-2.5); ABG Oxygen Saturation 99.4 % (95-100); ABG PCO2 32.5 MM HG (35-48); ABG PH 7.448 (7.35-7.45); ABG PO2 331.4 MM HG (80-95); Allen Test Positive; Pt O2 Delivery Device Ventilator
[2019-02-04 05:47] LABS: Basophils % 0.2 % (0.0-0.8); Hematocrit 37.8 VOL% (42.0-52.0); Hemoglobin 12.6 GM/DL (14.0-18.0); Immature Granulocytes % 1.2 %; Lymphocytes # 0.3 10*3/uL (1.4-4.0); Lymphocytes % 1.9 % (21.2-54.2); Mean Corpuscular HGB Conc 33.3 GM/DL (32-36); Mean Corpuscular Volume 82.4 FL (87-102); Mean Platelet Volume 12.9 FL (9.6-12.0); Neutrophils % 88.7 % (38.7-73.9); Platelet Count 95 T/CUMM (130-400); Red Blood Count 4.59 MC/CUMM (3.8-5.5); Red Cell Distribution Width 14.6 % (9.3-17.3); White Blood Count 16.6 T/CUMM (4-12)
[2019-02-04] MEDS: INSULIN REGULAR 100 UNIT/ML SUBCUT SCH ×3 (05:54→18:50)
[2019-02-04 06:11] LABS: Lymphocytes 1 % (20-55); Nucleated Red Blood Cells 1 (0-5); Segmented Neutrophils 94 % (50-85); Total Cells Counted 100
[2019-02-04 06:12] LABS: Hypochromasia 1+; Microcytosis Slight; Ovalocytes Slight; Polychromasia Slight
[2019-02-04 06:13] LABS: Platelet Estimate Decreased
[2019-02-04 06:18] LABS: Prealbumin 22.9 MG/DL (20-40)
[2019-02-04 06:30] LABS: Calcium 7.5 MG/DL (8.5-10.1); Osmolality,Calculated 298.2 MOS/KG (273-304)
[2019-02-04] MEDS: hydrALAZINE 25 MG TABLET PO SCH ×2 (09:32→21:02)
[2019-02-04] MEDS: carvediloL 12.5 MG TABLET PO SCH ×2 (09:33→21:02)
[2019-02-04] MEDS: buPROPion 100 MG TABLET PER TUBE SCH ×3 (09:33→21:02)
[2019-02-04 10:45] LABS: Amorphous Crystals,Urine Few /HPF (Few); Apearance,Urine CLOUDY (Clear); Bacteria,Urine Occasional /HPF (Few); Bilirubin,Urine Negative (Negative); Blood, Urine Moderate mg/dL (Negative); Glucose,Urine (UA) Negative (Negative); Hyaline Casts,Urine 1 /LPF (0-3); Ketones,Urine Negative (Negative); Mucus,Urine Occasional /LPF (Occasional); Nitrite,Urine Negative (Negative); Protein,Urine Negative; RBC,Urine 26 /HPF (0-4); Squamous Epithelial Cell,Urine Occasional /HPF (0-10); Urine Color Yellow (Yellow); Urine Specific Gravity 1.011 (1.001-1.035); Urine Urobilinogen < 2.0 EU/DL (0.2-1.0); WBC,Urine 18 /HPF (0-6)
[2019-02-04] MEDS: ZUBSOLV SL SCH (10:46)
[2019-02-04] MEDS: ISOSORBIDE DINITRATE 10 MG TABLET PO SCH ×3 (10:47→21:02)
[2019-02-04] MEDS: methylPREDNISolone SOD SUC 40 MG/1 ML VIAL IV SCH ×2 (11:02→22:47)
[2019-02-04] MEDS: HEPARIN 5,000 UNIT/1 ML VIAL SUBCUT SCH ×2 (11:02→22:47)
[2019-02-04] MEDS: MEROPENEM 500 MG in SODIUM CHLORIDE 0.9% 100 ML IV SCH (13:33)
[2019-02-04] MEDS: PHENOL 1.4% THROAT SPRAY 177 ML BOTTLE PO PRN (17:03)
[2019-02-05] MEDS: ALBUTEROL/IPRATROPIUM 3 ML NEB RESP TX SCH ×4 (00:30→19:56)
[2019-02-05 04:03] LABS: ABG Base Excess 0.7 MMOL/L (-2.5-2.5); ABG HCO3 23.6 MMOL/L (20-26); ABG PCO2 32.5 MM HG (35-48); ABG PH 7.479 (7.35-7.45); ABG PO2 193.9 MM HG (80-95); ABG TCO2 24.6 MMOL/L (23-27); Pt O2 Delivery Device Ventilator
[2019-02-05 04:18] LABS: Basophils % 0.2 % (0.0-0.8); Hematocrit 35.7 VOL% (42.0-52.0); Hemoglobin 11.9 GM/DL (14.0-18.0); Immature Granulocytes % 1.4 %; Immature Granulocytes Absolute 0.24 #; Lymphocytes # 0.4 10*3/uL (1.4-4.0); Lymphocytes % 2.2 % (21.2-54.2); Mean Corpuscular HGB Conc 33.3 GM/DL (32-36); Mean Corpuscular Volume 82.8 FL (87-102); Mean Platelet Volume 11.8 FL (9.6-12.0); Monocytes % 6.4 % (1.7-12.7); NRBC # 0.02 10*3/uL; Neutrophils % 89.8 % (38.7-73.9); Platelet Count 80 T/CUMM (130-400); Red Blood Count 4.31 MC/CUMM (3.8-5.5); Red Cell Distribution Width 14.6 % (9.3-17.3); White Blood Count 17.1 T/CUMM (4-12)
[2019-02-05 04:34] LABS: Calcium 7.7 MG/DL (8.5-10.1); Osmolality,Calculated 304.8 MOS/KG (273-304)
[2019-02-05] MEDS: PHENOL 1.4% THROAT SPRAY 177 ML BOTTLE PO PRN (04:47)
[2019-02-05] MEDS: ALUMINUM/MAGNES/SIMETH MAX STR 30 ML UDCUP PO PRN ×2 (04:56→15:48)
[2019-02-05] MEDS: INSULIN REGULAR 100 UNIT/ML SUBCUT SCH ×4 (05:21→18:03)
[2019-02-05 06:14] LABS: Band Neutrophils 1 % (0-10); Lymphocytes 3 % (20-55); Segmented Neutrophils 94 % (50-85); Total Cells Counted 100
[2019-02-05 06:15] LABS: Ovalocytes Slight; Polychromasia Slight
[2019-02-05 06:16] LABS: Microcytosis 1+; Platelet Estimate Decreased
[2019-02-05] MEDS: buPROPion 100 MG TABLET PER TUBE SCH ×3 (09:02→20:44)
[2019-02-05] MEDS: carvediloL 12.5 MG TABLET PO SCH ×2 (09:02→20:44)
[2019-02-05] MEDS: hydrALAZINE 25 MG TABLET PO SCH ×3 (09:03→21:59)
[2019-02-05] MEDS: ZUBSOLV SL SCH (09:03)
[2019-02-05] MEDS: ISOSORBIDE DINITRATE 10 MG TABLET PO SCH ×3 (10:39→20:44)
[2019-02-05] MEDS: HEPARIN 5,000 UNIT/1 ML VIAL SUBCUT SCH ×2 (10:49→22:00)
[2019-02-05] MEDS: methylPREDNISolone SOD SUC 40 MG/1 ML VIAL IV SCH (10:50)
[2019-02-05] MEDS: MEROPENEM 500 MG in SODIUM CHLORIDE 0.9% 100 ML IV SCH (13:35)
[2019-02-06] MEDS: INSULIN REGULAR 100 UNIT/ML SUBCUT SCH ×4 (01:02→17:47)
[2019-02-06] MEDS: ALBUTEROL/IPRATROPIUM 3 ML NEB RESP TX SCH ×4 (01:19→19:08)
[2019-02-06 05:03] LABS: ABG Base Excess -0.7 MMOL/L (-2.5-2.5); ABG HCO3 23.8 MMOL/L (20-26); ABG Oxygen Saturation 99.4 % (95-100); ABG PCO2 37.7 MM HG (35-48); ABG PH 7.405 (7.35-7.45); ABG TCO2 20.5 MMOL/L (23-27); Allen Test Positive; Pt O2 Delivery Device Ventilator
[2019-02-06 06:30] LABS: Basophils % 0.2 % (0.0-0.8); Hematocrit 41.8 VOL% (42.0-52.0); Hemoglobin 13.6 GM/DL (14.0-18.0); Lymphocytes # 0.5 10*3/uL (1.4-4.0); Lymphocytes % 2.4 % (21.2-54.2); Mean Corpuscular HGB Conc 32.5 GM/DL (32-36); Mean Corpuscular Volume 85.3 FL (87-102); Mean Platelet Volume 12.5 FL (9.6-12.0); Monocytes % 7.5 % (1.7-12.7); NRBC # 0.02 10*3/uL; Neutrophils % 88.9 % (38.7-73.9); Red Cell Distribution Width 15.1 % (9.3-17.3); White Blood Count 19.4 T/CUMM (4-12)
[2019-02-06 06:33] LABS: Platelet Count 61 T/CUMM (130-400)
[2019-02-06 06:52] LABS: Hypersegmented Neutrophil SLIGHT; Lymphocytes 3 % (20-55); Platelet Estimate Decreased; Segmented Neutrophils 91 % (50-85); Total Cells Counted 100
[2019-02-06 06:53] LABS: Anisocytosis Slight
[2019-02-06 07:05] LABS: Blood Urea Nitrogen 103 MG/DL (7-18); Calcium 7.7 MG/DL (8.5-10.1); Estimated Glom Filtration Rate 13 ML/MIN; Glucose 103 MG/DL (74-106)
[2019-02-06] MEDS: chlorproMAZINE 25 MG TABLET PO PRN (08:01)
[2019-02-06] MEDS: hydrALAZINE 25 MG TABLET PO SCH (08:05)
[2019-02-06] MEDS: buPROPion 100 MG TABLET PER TUBE SCH ×3 (09:32→21:15)
[2019-02-06] MEDS: ISOSORBIDE DINITRATE 10 MG TABLET PO SCH ×3 (09:32→21:15)
[2019-02-06] MEDS: carvediloL 12.5 MG TABLET PO SCH ×2 (09:32→21:15)
[2019-02-06] MEDS: ZUBSOLV SL SCH (09:32)
[2019-02-06 09:33] LABS: Albumin 2.3 G/DL (3.4-5.0); Bilirubin,Direct 0.61 MG/DL (0.0-0.20); Bilirubin,Indirect 1.4 MG/DL (0.0-1.0); Total Protein 5.2 G/DL (6.4-8.3)
[2019-02-06] MEDS: ACETAMINOPHEN 325 MG TABLET PO PRN ×2 (09:54→18:10)
[2019-02-06 10:11] LABS: Calcium 7.7 MG/DL (8.5-10.1)
[2019-02-06] MEDS: methylPREDNISolone SOD SUC 40 MG/1 ML VIAL IV SCH (11:14)
[2019-02-06] MEDS ORDERED: ALTEPLASE 2 MG VIAL IV ONE ×2 (14:27→14:43)
[2019-02-06] MEDS ORDERED: HEPARIN 10,000 UNIT/10 ML VIAL IV SCH (14:30)
[2019-02-06] MEDS: PHENOL 1.4% THROAT SPRAY 177 ML BOTTLE PO PRN (15:05)
[2019-02-06] MEDS: ALUMINUM/MAGNES/SIMETH MAX STR 30 ML UDCUP PO PRN (15:05)
[2019-02-07] MEDS: ALBUTEROL/IPRATROPIUM 3 ML NEB RESP TX SCH ×4 (00:12→19:11)
[2019-02-07] MEDS: ACETAMINOPHEN 325 MG TABLET PO PRN ×2 (00:29→08:55)
[2019-02-07] MEDS: INSULIN REGULAR 100 UNIT/ML SUBCUT SCH ×4 (00:33→17:30)
[2019-02-07 04:28] LABS: ABG HCO3 26.2 MMOL/L (20-26); ABG Oxygen Saturation 99.2 % (95-100); ABG PH 7.443 (7.35-7.45); ABG TCO2 22.8 MMOL/L (23-27); Allen Test Positive; Pt O2 Delivery Device Ventilator
[2019-02-07 06:04] LABS: Basophils % 0.1 % (0.0-0.8); Hematocrit 38.6 VOL% (42.0-52.0); Hemoglobin 12.9 GM/DL (14.0-18.0); Immature Granulocytes % 0.5 %; Immature Granulocytes Absolute 0.11 #; Lymphocytes # 0.5 10*3/uL (1.4-4.0); Lymphocytes % 2.4 % (21.2-54.2); Mean Corpuscular HGB Conc 33.4 GM/DL (32-36); Mean Corpuscular Volume 82.7 FL (87-102); Monocytes % 7.8 % (1.7-12.7); Neutrophils % 89.2 % (38.7-73.9); Platelet Count 54 T/CUMM (130-400); Red Blood Count 4.67 MC/CUMM (3.8-5.5); Red Cell Distribution Width 14.8 % (9.3-17.3); White Blood Count 22.2 T/CUMM (4-12)
[2019-02-07 06:25] LABS: Calcium 7.6 MG/DL (8.5-10.1); Osmolality,Calculated 298.8 MOS/KG (273-304)
[2019-02-07 06:28] LABS: Prealbumin 29.8 MG/DL (20-40)
[2019-02-07] MEDS: ZUBSOLV SL SCH (08:15)
[2019-02-07] MEDS: ISOSORBIDE DINITRATE 10 MG TABLET PO SCH ×3 (08:34→20:16)
[2019-02-07] MEDS: buPROPion 100 MG TABLET PER TUBE SCH ×3 (08:35→20:16)
[2019-02-07] MEDS: carvediloL 12.5 MG TABLET PO SCH ×2 (08:54→20:16)
[2019-02-07 10:23] LABS: Burr Cells Slight; Elliptocytes Few; Hypochromasia Slight; Lymphocytes 2 % (20-55); Microcytosis Slight; Ovalocytes Few; Platelet Estimate Decreased; Poikilocytosis 1+; Polychromasia Slight; Segmented Neutrophils 96 % (50-85); Total Cells Counted 100
[2019-02-07 11:14] LABS: ABG Base Excess 1.7 MMOL/L (-2.5-2.5); ABG HCO3 24.4 MMOL/L (20-26); ABG PCO2 32.8 MM HG (35-48); ABG PO2 93.1 MM HG (80-95); ABG TCO2 25.4 MMOL/L (23-27)
[2019-02-07] MEDS: methylPREDNISolone SOD SUC 40 MG/1 ML VIAL IV SCH (11:40)
[2019-02-07] MEDS ORDERED: traZODone 50 MG TABLET PO ONE (22:00)
[2019-02-08] MEDS: ALBUTEROL/IPRATROPIUM 3 ML NEB RESP TX SCH ×5 (00:42→20:00)
[2019-02-08] MEDS: INSULIN REGULAR 100 UNIT/ML SUBCUT SCH ×3 (02:46→13:28)
[2019-02-08 04:52] LABS: Basophils % 0.1 % (0.0-0.8); Hematocrit 36.9 VOL% (42.0-52.0); Hemoglobin 12.3 GM/DL (14.0-18.0); Immature Granulocytes % 0.7 %; Immature Granulocytes Absolute 0.16 #; Lymphocytes # 0.6 10*3/uL (1.4-4.0); Lymphocytes % 2.3 % (21.2-54.2); Mean Corpuscular HGB Conc 33.3 GM/DL (32-36); Mean Corpuscular Volume 82.9 FL (87-102); Monocytes % 7.3 % (1.7-12.7); Neutrophils % 89.6 % (38.7-73.9); Platelet Count 43 T/CUMM (130-400); Red Blood Count 4.45 MC/CUMM (3.8-5.5); Red Cell Distribution Width 14.6 % (9.3-17.3); White Blood Count 24.4 T/CUMM (4-12)
[2019-02-08 05:17] LABS: Hypochromasia 1+; Lymphocytes 5 % (20-55); Microcytosis Slight; Ovalocytes Slight; Platelet Estimate Decreased; Segmented Neutrophils 88 % (50-85); Total Cells Counted 100
[2019-02-08 05:41] LABS: Albumin 1.9 G/DL (3.4-5.0); Bilirubin,Total 1.3 MG/DL (0.2-1.0); Calcium 7.5 MG/DL (8.5-10.1); Osmolality,Calculated 289.2 MOS/KG (273-304); Total Protein 4.5 G/DL (6.4-8.3)
[2019-02-08] MEDS: carvediloL 12.5 MG TABLET PO SCH ×2 (10:09→21:50)
[2019-02-08] MEDS: buPROPion 100 MG TABLET PER TUBE SCH ×3 (10:09→21:50)
[2019-02-08] MEDS: ISOSORBIDE DINITRATE 10 MG TABLET PO SCH ×3 (10:09→21:49)
[2019-02-08] MEDS: ZUBSOLV SL SCH (10:18)
[2019-02-08] MEDS: POLYVINYL ALCOHOL 1.4% OPH SOLN 15 ML BOTTLE BOTH EYES PRN ×3 (11:18→20:10)
[2019-02-08] MEDS: methylPREDNISolone SOD SUC 40 MG/1 ML VIAL IV SCH (11:31)
[2019-02-08] MEDS: DOCUSATE/SENNA 50-8.6 MG TABLET PO SCH ×2 (15:21→21:50)
[2019-02-08] MEDS: hydrALAZINE 25 MG TABLET PO SCH (21:50)
[2019-02-09] MEDS: ALBUTEROL/IPRATROPIUM 3 ML NEB RESP TX SCH ×4 (01:30→20:16)
[2019-02-09] MEDS: POLYVINYL ALCOHOL 1.4% OPH SOLN 15 ML BOTTLE BOTH EYES PRN ×2 (03:23→10:34)
[2019-02-09 04:43] LABS: Basophils # 0.1 10*3/uL (0.0-0.2); Basophils % 0.2 % (0.0-0.8); Hematocrit 39.3 VOL% (42.0-52.0); Immature Granulocytes % 0.8 %; Immature Granulocytes Absolute 0.21 #; Lymphocytes # 0.7 10*3/uL (1.4-4.0); Lymphocytes % 2.6 % (21.2-54.2); Mean Corpuscular HGB Conc 33.1 GM/DL (32-36); Mean Corpuscular Volume 83.6 FL (87-102); Monocytes % 6.3 % (1.7-12.7); Neutrophils % 90.1 % (38.7-73.9); Platelet Count 72 T/CUMM (130-400); Red Cell Distribution Width 14.6 % (9.3-17.3); White Blood Count 26.1 T/CUMM (4-12)
[2019-02-09 05:14] LABS: Lymphocytes 1 % (20-55); Platelet Estimate Decreased; Segmented Neutrophils 92 % (50-85); Total Cells Counted 100
[2019-02-09 05:15] LABS: Hypochromasia Slight; Microcytosis Slight; Ovalocytes Slight
[2019-02-09 05:21] LABS: Albumin 2.1 G/DL (3.4-5.0); Bilirubin,Total 1.4 MG/DL (0.2-1.0); Calcium 7.6 MG/DL (8.5-10.1); Osmolality,Calculated 298.2 MOS/KG (273-304)
[2019-02-09] MEDS: hydrALAZINE 25 MG TABLET PO SCH ×2 (09:43→21:09)
[2019-02-09] MEDS: buPROPion 100 MG TABLET PER TUBE SCH ×3 (09:44→21:09)
[2019-02-09] MEDS: carvediloL 12.5 MG TABLET PO SCH ×2 (09:44→21:09)
[2019-02-09] MEDS: ISOSORBIDE DINITRATE 10 MG TABLET PO SCH ×3 (09:44→21:09)
[2019-02-09] MEDS: DOCUSATE/SENNA 50-8.6 MG TABLET PO SCH ×2 (09:44→21:09)
[2019-02-09] MEDS: ZUBSOLV SL SCH (09:46)
[2019-02-09] MEDS: ACETAMINOPHEN 325 MG TABLET PO PRN (12:44)
[2019-02-09 14:12] LABS: Myeloperoxidase Antibody < 0.2 U
[2019-02-09] MEDS ORDERED: POLYETHYLENE GLYCOL POWDER 17 GM PACK PO SCH (15:00)
[2019-02-09] MEDS ORDERED: MINERAL OIL ENEMA 133 ML BOTTLE RECTAL ONE (16:00)
[2019-02-09] MEDS: POLYETHYLENE GLYCOL POWDER 17 GM PACK PO SCH ×2 (19:41→22:25)
[2019-02-09] MEDS: DOCUSATE SODIUM 100 MG CAPSULE PO SCH (21:09)
[2019-02-09] MEDS: MELATONIN 3 MG TABLET PO SCH (21:09)
[2019-02-09] MEDS: LACTULOSE 20 GM/30 ML UDCUP PO SCH (21:16)
[2019-02-10] MEDS: ALBUTEROL/IPRATROPIUM 3 ML NEB RESP TX SCH ×4 (01:03→20:15)
[2019-02-10] MEDS: POLYETHYLENE GLYCOL POWDER 17 GM PACK PO SCH ×6 (02:26→23:06)
[2019-02-10] MEDS: LACTULOSE 20 GM/30 ML UDCUP PO SCH ×6 (02:26→23:06)
[2019-02-10 05:33] LABS: Basophils % 0.2 % (0.0-0.8); Eosinophils # 0.1 10*3/uL (0.0-0.87); Eosinophils % 0.6 % (0.00-10.9); Hemoglobin 12.8 GM/DL (14.0-18.0); Immature Granulocytes % 0.9 %; Lymphocytes # 1.6 10*3/uL (1.4-4.0); Mean Corpuscular HGB Conc 33.7 GM/DL (32-36); Mean Corpuscular Volume 83.3 FL (87-102); Mean Platelet Volume 11.2 FL (9.6-12.0); Monocytes % 8.8 % (1.7-12.7); Neutrophils % 82.5 % (38.7-73.9); Red Blood Count 4.56 MC/CUMM (3.8-5.5); Red Cell Distribution Width 14.6 % (9.3-17.3)
[2019-02-10 05:34] LABS: Platelet Count 84 T/CUMM (130-400)
[2019-02-10 05:55] LABS: Albumin 2.4 G/DL (3.4-5.0); Bilirubin,Total 1.7 MG/DL (0.2-1.0); Calcium 8.2 MG/DL (8.5-10.1); Osmolality,Calculated 295.1 MOS/KG (273-304); Total Protein 5.3 G/DL (6.4-8.3)
[2019-02-10 06:05] LABS: Microcytosis 1+; Ovalocytes Few; Platelet Estimate Decreased
[2019-02-10] MEDS: ISOSORBIDE DINITRATE 10 MG TABLET PO SCH ×3 (10:12→21:03)
[2019-02-10] MEDS: buPROPion 100 MG TABLET PER TUBE SCH ×3 (10:13→21:03)
[2019-02-10] MEDS: DOCUSATE/SENNA 50-8.6 MG TABLET PO SCH ×2 (10:13→21:03)
[2019-02-10] MEDS: DOCUSATE SODIUM 100 MG CAPSULE PO SCH ×2 (10:13→21:03)
[2019-02-10] MEDS: carvediloL 12.5 MG TABLET PO SCH ×2 (10:13→21:03)
[2019-02-10] MEDS: hydrALAZINE 25 MG TABLET PO SCH ×2 (10:13→21:03)
[2019-02-10] MEDS: ZUBSOLV SL SCH (10:14)
[2019-02-10 11:31] LABS: Antinuclear Ab, S 0.1 U; Cyclic Citrull Peptide Ab Mayo < 15.6 U
[2019-02-10] MEDS ORDERED: MINERAL OIL 30 ML UDCUP PO ONE (14:43)
[2019-02-10] MEDS: ALUMINUM/MAGNES/SIMETH MAX STR 30 ML UDCUP PO PRN (21:03)
[2019-02-10] MEDS: MELATONIN 3 MG TABLET PO SCH (21:03)
[2019-02-11] MEDS: ALBUTEROL/IPRATROPIUM 3 ML NEB RESP TX SCH ×2 (01:43→07:15)
[2019-02-11] MEDS: LACTULOSE 20 GM/30 ML UDCUP PO SCH ×3 (02:50→09:23)
[2019-02-11] MEDS: POLYETHYLENE GLYCOL POWDER 17 GM PACK PO SCH ×3 (02:50→10:15)
[2019-02-11 05:32] LABS: Calcium 8.2 MG/DL (8.5-10.1)
[2019-02-11 07:31] VITALS: BP 107/47
[2019-02-11] MEDS: DOCUSATE SODIUM 100 MG CAPSULE PO SCH (09:22)
[2019-02-11] MEDS: ISOSORBIDE DINITRATE 10 MG TABLET PO SCH (09:22)
[2019-02-11] MEDS: carvediloL 12.5 MG TABLET PO SCH (09:23)
[2019-02-11] MEDS: DOCUSATE/SENNA 50-8.6 MG TABLET PO SCH (09:23)
[2019-02-11] MEDS: buPROPion 100 MG TABLET PER TUBE SCH (09:23)
[2019-02-11] MEDS: ZUBSOLV SL SCH (09:23)
[2019-02-11] MEDS: hydrALAZINE 25 MG TABLET PO SCH (09:23)
== END 2019-02-11 13:28 | disposition home or self-care (01) | DRG 870 ==
LOC: N.ED 01:20 → SUATTDRO 04:49 → N.EDINP 04:49 → N.ICU 05:38 → N.TELEN 02-08 20:13
PROVIDERS: ADMIT Internal Medicine; ATTEND Hospitalist